=== PATIENT | female | born 1990 | race African-American/Black ===

== ENCOUNTER 2022-05-19 08:53 | Observation (INO) | payer OTHER ==
[~2022-05-19] VITALS: Ht 165.1 cm; Wt 69.4 kg
== END 2022-05-19 11:10 | disposition home or self-care (01) ==
LOC: 8 EST A/PP 08:53
PROVIDERS: ADMIT Obstetrics & Gynecology; ATTEND Obstetrics & Gynecology
DX: M25.552 Pain in left hip (principal); M79.662 Pain in left lower leg; W19.XXXA Unspecified fall, initial encounter; Y93.89 Activity, other specified; Y92.89 Other specified places as the place of occurrence of the external cause; Y99.8 Other external cause status
CPT/HCPCS: 59025; 76805; 76818; G0378; 99281